=== PATIENT | female | born 1945 | race Caucasian/White ===

== ENCOUNTER 2024-12-26 16:06 | Emergency (ER) | payer OTHER, SELFPAY ==
[2024-12-26 16:10] VITALS: BMI 38.6
[2024-12-26 16:17] VITALS: BP 166/80
[2024-12-26 16:24] LABS: % Basophils 0.4 % (0-2); % Eosinophils 0.5 % (0-6); % Immature Granulocytes 0.4 % (0-0.5); % Lymphocytes 6.3 % (20.5-51.1); % Monocytes 4.7 % (1.7-9.3); % Neutrophils 87.7 % (42.2-75.2); Absolute Basophils 0.1 10^3/uL (0-0.2); Absolute Eosinophils 0.1 10^3/uL (0-0.7); Absolute Immature Granulocytes 0.1 10^3/uL (0-0.05); Absolute Lymphocytes 0.8 10^3/uL (1.2-3.4); Absolute Monocytes 0.6 10^3/uL (0.1-0.6); Absolute Neutrophils 11.7 10^3/uL (1.4-6.5); Hematocrit 35.3 % (37.0-47.0); Hemoglobin 11.1 g/dL (12.0-16.0); Mean Corp Hgb Conc. 31.4 g/dL (33.0-37.0); Mean Corpuscular Hgb 27.1 pg (27.0-31.0); Mean Corpuscular Volume 86.1 fL (81.0-99.0); Nucleated Red Blood Cells % 0 %; Platelet Count 302 10^3/uL (130-400); Red Cell Dist. Width 15.1 % (11.5-14.5); White Blood Cell Count 13.3 10^3/uL (4.8-10.8)
[2024-12-26 16:38] LABS: ALT (SGPT) 14 U/L (0-35); AST (SGOT) 23 U/L (14-36); Albumin 4.3 g/dl (3.5-5.0); Alkaline Phosphatase 89 U/L (38-126); Blood Urea Nitrogen 18 mg/dl (7-17); Calcium 9.8 mg/dl (8.4-10.2); Carbon Dioxide 22 mmol/L (22-30); Chloride 106 mmol/L (98-107); Estimated Creatinine Clearance 57 ml/min; Glucose 115 mg/dl (70-99); Lipase 132 U/L (23-300); Potassium 4.1 mmol/L (3.5-5.1); Sodium 138 mmol/L (135-145); Total Bilirubin 1.1 mg/dl (0.2-1.3); Total Protein 7.3 g/dl (6.3-8.2); eGFR > 60.00
[2024-12-26] MEDS: NSS 1000 IV (17:28)
[2024-12-26] MEDS: BENTYL 20 MG IM (17:29)
--- NOTE | 2024-12-26 19:19 | ED.GENMED ---
History of Present Illness
General
Chief Complaint: Abdominal Pain
Source: patient
Exam Limitations: none
Time Seen by Provider: 12/26/24 16:21
Nursing documentation reviewed up to this point in time: agreed with
History of Present Illness
History of Present Illness:
79-year-old female presenting to the emergency department today with concerns of rectal discomfort and difficulty with bowel movements over the past 2 days or so. Tried taking laxatives without relief. Denies any chest pain shortness of breath
some nausea no vomiting.
Past History
Past History
ED Past Medical History: Other (Recurrent bronchitis,)
Social History
Tobacco: Former smoker
Alcohol: None
Family History
Family History: Negative Diabetes, Hypertension or CAD
Review of Systems
Review of Systems
Allergies reviewed?: Yes
All Other Systems: ROS reviewed and negative except as documented in HPI and ROS
Phy Exam
Physical Exam
Physical Exam:
GENERAL: Alert , in no apparent distress
EYE: pupils equal and reactive
NECK: Supple, no significant adenopathy.
ENT: o/p clr, mmm.
CARDIAC: Regular rate and rhythm .
LUNGS: Clear breath sounds bilaterally, no acute respiratory distress, no wheezes/rales/rhonchi
ABDOMEN: Vague discomfort to lower abdomen no specific focal pain no guarding, no peritoneal sign soft, without focal tenderness, no r/g, no cvat
NEUROLOGICAL: Alert and oriented, no focal neuro deficits
SKIN: Warm and dry, skin intact.
MUSCULOSKELETAL: No edema, well perfused.
PSYCH: Normal and appropriate interaction.
Course
Orders/Labs/Results
Orders:
Orders
12/26/24 16:09
IV Insert/Care/Rem.- Treatment PRN
Urinalysis Reflex To Culture Urgent
Date Specimen was Collected: 12/26/24
Time Specimen was Collected: 16:09
12/26/24 16:14
Complete Blood Count/With Diff Urgent
Comprehensive Metabolic Panel Urgent
Lipase Urgent
12/26/24 17:02
CT Abd/Pel (IV only)-DH only Urgent
Comment:
Reason For Exam: lower abd pain diff with BM
Dicyclomine HCl [Bentyl] 20 mg IM NOW STA
12/26/24 17:03
0.9% Sodium Chloride 1000 ml [Nss] 1,000 ml IV BOLUS
Abnormal Lab Results
12/26/24
16:14
WBC 13.3 H 10^3/uL
(4.8-10.8)
RBC 4.10 L 10^6/uL
(4.20-5.40)
Hgb 11.1 L g/dL
(12.0-16.0)
Hct 35.3 L %
(37.0-47.0)
MCHC 31.4 L g/dL
(33.0-37.0)
RDW 15.1 H %
(11.5-14.5)
Abs Immat Gran (auto) 0.1 H 10^3/uL
(0-0.05)
Absolute Neuts (auto) 11.7 H 10^3/uL
(1.4-6.5)
Absolute Lymphs (auto) 0.8 L 10^3/uL
(1.2-3.4)
Neutrophils % 87.7 H %
(42.2-75.2)
Lymphocytes % 6.3 L %
(20.5-51.1)
BUN 18 H mg/dl
(7-17)
Glucose 115 H mg/dl
(70-99)
12/26/24 16:14
12/26/24 16:14
Vital Signs
Initial and Last Documented VS:
Initial Vital Signs
Temp
98.5 F
12/26/24 16:10
Last Documented Vital Signs
Temp Pulse BP Pulse Ox
98.5 F 84 145/68 98
12/26/24 16:10 12/26/24 19:36 12/26/24 19:36 12/26/24 19:36
Procedures
Other
Indication for procedure:: Fecal impaction
Procedure completed by: Myself
Consent form signed: No
If no, reason: Emergency procedure
Additional Procedure:
Digital rectal examination with moderate amount of stool removal with water-based lubricant.
MDM/Problems Addressed
MDM/Problems Addressed:
79-year-old female presenting to the emergency department today with concerns of difficulty with bowel movements and a pressure sensation to the rectal region. Difficulty having significant bowel movements over the past 2 days. On labs white count
of 13.3 otherwise findings potentially consistent with mild dehydration was given IV fluids here. CT scan was obtained showing fecal impaction with some rectal wall thickening potentially consistent with a stercoral proctitis. Additional
nonemergent findings were discussed with the patient as well. Rectal examination was performed and moderate amount of stool removed. Patient then able to have a large bowel movement. Patient has significant improvement of symptoms appear stable
for discharge at this time. Return precautions given.
*Critical Care Note
Total Time (30-74mins, 75-104mins- exclusive of procedures): Not Applicable
ED Attending Note
-
Portions of this chart may have been created with voice recognition software.� Occasional wrong word or��sound alike� substitutions may have occurred due to the inherent limitations of voice recognition software.
Discharge Plan
Departure
Patient Disposition: Home (Routine Discharge)
Date of Disposition: 12/26/24
Time of Disposition: 19:38
Patient with high blood pressure during this ER visit?: No
Condition: Good
Covid-19: Not Applicable
Discharge Problem:
Fecal impaction
Instructions: Constipation, Adult (DC)
Prescriptions:
New
polyethylene glycol 3350 [Miralax] 17 gram/dose powder
4 g PO DAILY Qty: 119 0RF
No Action
esomeprazole magnesium [Nexium] 40 MG capsule,delayed release(DR/EC)
40 mg PO DAILY
fluticasone propionate 1 SPRAY spray,suspension
1 spray intranasal DAILY
citalopram [Celexa] 40 MG tablet
40 mg PO DAILY
multivitamin with folic acid [Tab-A-Leatha] 1 TABLET tablet
1 tab PO DAILY
zolpidem [Ambien] 10 MG tablet
10 mg PO HSPRN PRN (Reason: insomnia )
albuterol sulfate 1 PUFF HFA aerosol inhaler
2 puff inhalation Q4HPRN PRN (Reason: shortness of breath/wheeze) Qty: 0 0RF
calcium carbonate-vitamin D3 1 EACH tablet
2 ea PO DAILY
Trelegy Ellipta 1 EACH blister with device
1 ea IH DAILY
mupirocin 1 APPLIC ointment
1 applic topical BID Qty: 1 0RF
Patient Comments:
pt states she did not use this at all
Rx Instructions:
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
[facility]
LEFT EYE .[id number]
aspirin 325 mg Tablet
325 mg PO DAILY Qty: 30 0RF
Rx Instructions:
Take daily x4 weeks for blood clot prevention.
celecoxib 200 mg Capsule
200 mg PO DAILY Qty: 14 0RF
Rx Instructions:
Take daily with food.
DO NOT take within 2 hours of Aspirin.
docusate sodium 100 mg Capsule
100 mg PO BID Qty: 30 0RF
magnesium hydroxide 400 mg/5 mL Suspension
30 ml PO HS Qty: 355 0RF
Rx Instructions:
Continue nightly with Colace and Senna until you are having regular bowel movements.
sennosides [senna] 8.6 mg Tablet
17.2 mg PO BID Qty: 30 0RF
acetaminophen 325 mg Tablet
650 mg PO Q4HPRN PRN (Reason: mild pain) Qty: 60 0RF
Rx Instructions:
DO NOT exceed >4000 mg daily while on [place].
1 [place] tab = 325 mg of Tylenol.
tizanidine 4 mg Tablet
4 mg PO BID Qty: 14 0RF
hydrocodone-acetaminophen 5-325 mg tablet
1 tab PO Q6H PRN (Reason: moderate-severe pain) Qty: 30 0RF
Rx Instructions:
1 tab for moderate pain, 2 if severe.
Dx total joint. Ongoing therapy.
prochlorperazine maleate [Compazine] 5 mg tablet
5 mg PO TID PRN (Reason: nausea and vomiting) Qty: 15 0RF
cefadroxil 500 mg capsule
500 mg PO BID Qty: 14 0RF
Rx Instructions:
Start night of discharge and take twice daily until finished.
Take with probiotic.
Saccharomyces boulardii [Florastor] 250 mg capsule
250 mg PO BID Qty: 14 0RF
Rx Instructions:
Over the counter. Take while on antibiotic.
If unavailable, choose another probiotic.
alprazolam 0.5 MG tablet
0.5 mg PO BIDPRN PRN (Reason: anxiety) Qty: 1 0RF
Rx Instructions:
Home medication. Reduce to twice daily as needed while on [place] for post-op pain.
Referrals:
Ladarius Mercado DO [Family Provider] -
Activity Restrictions/Additional Instructions:
You came to the emergency department today with concerns of a fecal impaction. This was removed here. Please take MiraLAX once daily over the next few days and increase fiber in your diet as well as hydration. Please have close with your primary
care doctor for further management. Return for any worsening, new or concerning symptoms.
Interventions
Interventions:
*Risk Screen - Suicide Last Done: 12/26/24 16:10
*General Assessment Last Done: 12/26/24 16:10
*Neglect/Abuse Screening Last Done: 12/26/24 16:10
*ED- Fall Risk Assessment Last Done: 12/26/24 16:10
[place]-[facility]-Jwfufqhl[facility] Assessment Last Done: 12/26/24 16:17
Discharge Date and Time
Print Language: KAZAKH
[2024-12-26 19:36] VITALS: BP 145/68
== END 2024-12-26 20:16 | disposition home or self-care (01) ==
LOC: EMR 16:06
PROVIDERS: EMERGENCY PHYSICIAN Emergency Medicine; FAMILY PHYSICIAN Family Medicine
DX: K56.41 Fecal impaction (principal); Z87.891 Personal history of nicotine dependence
CPT/HCPCS: 99285; 96360; 96372; 74177; 80053; 83690; 85025; Q9967